=== PATIENT | female | born 2000 | race Caucasian/White ===

== ENCOUNTER 2024-10-23 13:37 | Emergency (ER) | payer SELFPAY ==
--- NOTE | ~2024-10-23 | XR_ITS ---
EXAM/PROCEDURE: XR chest 1V portable - 10/23/2024 14:40 CDT HISTORY: 24 years old Female with cough TECHNIQUE: Two view(s) of the chest. COMPARISON: None available. FINDINGS: LUNGS/ PLEURA: No focal consolidation. Mild perihilar bronchial wall thickening. HEART/ MEDIASTINUM: Heart appears normal in size. BONES: No acute osseous abnormality. OTHER: Visualized upper abdomen is unremarkable. IMPRESSION: No focal consolidation. Mild perihilar bronchial wall thickening, findings suggestive of respiratory bronchiolitis. Reviewed, dictated and finalized at location A. IMPRESSION: No focal consolidation. Mild perihilar bronchial wall thickening, findings sugg estive of respiratory bronchiolitis.
[2024-10-23 13:38] VITALS: BP 127/69; PULSE 126; RESP 16; TEMP 37.7; O2SAT 100
--- NOTE | 2024-10-23 13:46 | ED_ITS ---
HPI - URI/Sore Throat General Chief Complaint: Upper Respiratory Infection Stated Complaint: chills, malaise, sore throat Time Seen by Provider: 10/23/24 15:58 Focused HPI: 24-year-old female presents emergency department for 1 day of sore throat, body aches, productive cough, congestion. Patient denies nausea, vomiting or diarrhea. She is also reporting some discomfort with urination. Denies vaginal discharge or concern for STDs. States her right ear has been bothering her for the past couple weeks but it is now getting better. GENERAL: Well-appearing, well-nourished, and in no acute distress. HEAD: Normocephalic, atraumatic. ENT: Mild injection to the right TM with no bulging, normal canal, no mastoid tenderness. Left TM is wells nonbulging with normal canals. Posterior pharynx with erythema and bilateral tonsillar exudates. No unilateral tonsillar hypertrophy or uvular deviation. No trismus. CHEST: Clear to auscultation. ?No respiratory distress. HEART: Regular rate and rhythm.? NEURO: ?Alert and oriented x3. Patient screened in triage and initial orders placed.? ?Additional care and disposition to be based upon?diagnostic testing and treatment. Related Data Allergies Allergy/AdvReac Type Severity Reaction Status Date / Time No Known Allergies Allergy Verified 10/23/24 13:39 Course Vital Signs Vital signs: Vital Signs Temperature 100 F H 10/23/24 13:38 Pulse Rate 126 H 10/23/24 13:38 Respiratory Rate 16 10/23/24 13:38 Blood Pressure 127/69 10/23/24 13:38 Pulse Oximetry 100 10/23/24 13:38 Temperature 98.7 F 10/23/24 17:45 Pulse Rate 92 10/23/24 17:45 Respiratory Rate 16 10/23/24 17:45 Blood Pressure 119/70 10/23/24 17:45 Pulse Oximetry 100 10/23/24 17:45 Oxygen Delivery Room Air 10/23/24 16:00 MDM - URI/Sore Throat Lab Data Labs: Lab Results 10/23/24 10/23/24 Range/Units 16:02 16:06 Urine Color Yellow (Yellow) Urine Appearance Clear (Clear) Urine pH 5.5 (5.0-9.0) Ur Specific [place] 1.006 (1.001-1.035) Urine Protein Negative (Negative) mg/dL Urine Glucose (UA) Negative (Negative) mg/dL Urine Ketones Negative (Negative) mg/dL Ur Blood (Man) Negative (Negative) Urine Nitrate Negative (Negative) Urine Bilirubin Negative (Negative) Urine Urobilinogen 0.2 (<2.0) mg/dL Leukocyte Esterase Rfl Negative (Negative) SAMMY/UL POC Urine HCG, Qual Negative (Negative) Influenza A (RT-PCR) Negative (Negative) Influenza B (RT-PCR) Negative (Negative) RSV (RT-PCR) Negative (Negative) SARS-CoV-2 RNA (RT-PCR) Negative (Negative) Group A Strep (PCR) Detected A (Negative) Discharge Plan Discharge Clinical Impression: Strep pharyngitis Patient Disposition: Home Condition: Stable Instructions: Antibiotic Form, Strep Throat (DC) Patient Language: Sinhala Prescriptions: New amoxicillin-pot clavulanate 875-125 mg tablet 1 tablet PO Q12H Qty: 20 0RF Follow-up/Referrals: PHYSICIAN,TELEVISION ANCHOR [Primary Care Provider] -
[2024-10-23 16:08] LABS: BEDSIDEPREGUCG Negative (Negative)
[2024-10-23 16:16] LABS: Add Urine Microscopic? NO; Appearance Urine Clear (Clear); Glucose Urine UA Negative (Negative); Leukocyte Esterase Ur Negative LEU/UL (Negative); Nitrate Urine Negative (Negative); Specific Grav Ur 1.006 (1.001-1.035)
--- OUTSIDE RECORDS SUMMARY | 2024-10-23 16:27 | XMS_ITS ---
Author Organization Unknown Address [address] [place], [place] [phone] Phone Care Team Providers Care Air Pollution Compliance Inspector Name Role Phone KEARA MAGAÑA [facility] SYBIL Rhodes Primary Unavailable Social History Type Status Start Date End Date Code Code Syst em Sex Female Vital Signs Vital Sign Value Unit Smith Value Smith Unit Date/Time Recent/Initial? Code Code System Body Mass Index 27.07 kg/m2 07/04/2023 22:30 Initial 61292 -5 LOINC Systolic Blood Pressure 127 mm[Hg] 07/04/2023 23:07 Most Recent 8480- 6 LOINC Diastolic Blood Pressure 65 mm[Hg] 07/04/2023 23:07 Most Recent 8462- 4 LOINC Systolic Blood Pressure 149 mm[Hg] 07/04/2023 22:30 Initial 8480- 6 LOINC Diastolic Blood Pressure 88 mm[Hg] 07/04/2023 22:30 Initial 8462- 4 LOINC Body Surface Area 1.71 m2 07/04/2023 22:30 Initial 3140- 1 LOINC Height 157.480 0 cm 62.00 in 07/04/2023 22:30 Initial 8302- 2 LOINC O2 Saturation 98 % 2023 23:07 Most Recent 35628 -5 LOINC O2 Saturation 98 % 2023 22:30 Initial 81828 -5 LOINC Pulse 74.0 /min 07/04/2023 23:07 Most Recent 8867- 4 LOINC Pulse 91.0 /min 07/04/2023 22:30 Initial 8867- 4 LOINC Respiration 20 /min 07/04/19 23:07 Most Recent 9279- 1 LOINC Respiration 18 /min 07/04/19 22:30 Initial 9279- 1 LOINC Temperature 36.9 Jolynn 98.4 F 07/04/19 24 22:30 Initial 8310- 5 LOINC Weight 67.13 kg 148.00 lbs 07/04/2023 22:30 Initial 05408 -7 LOINC Assessment You had the following problems:FEVERPHARYNGITIS Hospital Discharge Instructions Should you have any questions prior to discharge, please contact a member of your healthcare team. If you have left the hospital and have any questions, please contact your primary care physician. Reason For Referral No Data Found Problems Problem Start Date Resolved Date Status Code Code System FEVER active 625188410 SNOMED-CT PHARYNGITIS active 480985760 SNOMED-C T Allergies and Adverse Reactions Allergy Substance Reaction Severity Start Date Concern Status Co de Code System No Known Drug Allergies Active 288488123 SNOMED-CT Plan of Treatment No Data Found Encounters Encounter Diagnosis Start Date Code Code Sys tem Rash and other nonspecific skin eruption 07/04/2023 SNOMED-CT Personal Care Team Section Performer Name Performer Role Active Date Inactive Da te ANNIA Rhodes PCP - Primary care physician 2022-01-12 2023-12-10 ANNIA Rhodes PCP - Primary care physician 2023-12-10 2023-12-10
--- OUTSIDE RECORDS SUMMARY | 2024-10-23 16:27 | XMS_ITS ---
Author Organization Unknown Address [address] [phone] Phone Care Team Providers Care Hydrostatic Tubing Tester Name Role Phone GODWIN BROWN Attending Unavailable ANNIA Rhodes Primary Unavailable Results STREP SCREEN - Collect Date/ Time: 08/18/2022 15:49 [facility] ID: [id number] [address], [place], [phone] LOINC: Test Value Unit Reference Range Code Code System Flag STREP GRP A NEGATIVE NORMAL: NEGATIVE COVID RAPID ANTIGEN - Collec t Date/Time: 08/18/2022 15:49 [facility] ID: [id number] [address], [place], [phone] LOINC: 67727-0 Test Value Unit Reference Range Code Code System Flag COVID AG NEGATIVE NORMAL: NEGATIVE 20769-9 LOINC LIPASE - Collect Date/Time: 08/18/2022 15:48 [facility] ID: [id number] [address], [place], [phone] LOINC: 3040-3 Test Value Unit Reference Range Code Code System Flag LIPASE 111 U/L L=114 H=286 L CBC W/DIFF - Collect Date/Ti me: 08/18/2022 15:48 [facility] ID: [id number] [address], [place], [phone] LOINC: 52176-2 Test Value Unit Reference Range Code Code System Flag WBC 4.6 X10^3 L=4.8 H=10.8 L RBC 4.7 X10^6 L=4.2 H=5.4 HEMOGLOBIN 12.7 g/dL L=12.0 H=16.0 HEMATOCRIT 38 % L=36 H=51 MCV 81 fL L=82 H=95 L MCH 27 pg L=27 H=31 MCHC 33 g/dL L=32 H=36 RDW 16 % L=11 H=15 H PLATELETS 225 X10^3 L=130 H=400 MPV 8.2 fL %NEUT 72 % L=42 H=75 %LYMPH 17.4 % L=20.5 H=51.1 L %MONO 9.2 % L=1.7 H=9.3 %EOS 1.5 % L=0.0 H=7.0 %BASO 0.2 % L=0.0 H=1.5 #NEUT 3.3 X10^3 L=1.5 H=8.0 #LYMPH 0.8 X10^3 L=1.2 H=3.4 L #MONO 0.4 X10^3 L=0.1 H=0.6 #EOS 0.1 X10^3 L=0.0 H=0.8 #BASO 0.0 X10^3 L=0.0 H=0.2 MANUAL DIFF RBC MORPH URINALYSIS - Collect Date/Ti me: 08/18/2022 15:48 [facility] ID: [id number] [address], [place], [phone] LOINC: 58426-4 Test Value Unit Reference Range Code Code System Flag SPEC SOURCE: COLOR Yellow NORMAL: Straw CLARITY Clear NORMAL: Clear SPEC GRAVITY 1.020 1.005 - 1.020 pH 5.5 5.5 - 7.5 GLUCOSE Negative NORMAL: Negative BILIRUBIN Negative NORMAL: Negative KETONE Negative NORMAL: Negative PROTEIN Negative NORMAL: Negative NITRITE Negative NORMAL: Negative BLOOD Negative NORMAL: Negative LEUK EST Negative NORMAL: Negative UROBILINOGEN 0.2 0.2 - 1.0 mg/dL MICROSCOPIC See Below WBC None Seen NORMAL: None Seen RBC None Seen NORMAL: None Seen EPITHELIAL 0-2/HPF NORMAL: None Seen BACTERIA Trace NORMAL: None Seen MUCOUS NORMAL: None Seen CASTS CRYSTALS URINE HCG - Collect Date/Kt e: 08/18/2022 15:48 [facility] ID: [id number] [address], [place], [phone] LOINC: 2-1 Test Value Unit Reference Range Code Code System Flag PREG URINE NEGATIVE CMP - Collect Date/Time: 08/2022 15:48 [facility] ID: [id number] [address], [place], [phone] LOINC: 21806-9 Test Value Unit Reference Range Code Code System Flag SODIUM 140 mmol/L L=133 H=142 POTASSIUM 4.0 mmol/L L=3.6 H=5.2 CHLORIDE 103 mmol/L L=100 H=108 CO2 30 mmol/L L=21 H=32 ANION GAP 11 GLUCOSE 84 mg/dL L=70 H=110 BUN 9 mg/dL L=7 H=18 CREATININE 0.8 mg/dL L=0.6 H=1.3 BUN/CREAT 11 AGE 22 yrs NON-AA GFR 95 mL/min AFR AMER GFR 115 mL/min TOTAL PROTEIN 7.4 g/dL L=6.4 H=8.2 ALBUMIN 4.0 g/dL L=2.9 H=4.7 GLOBULIN 3 g/dL A/G RATIO 1.3 CALCIUM 9.1 mg/dL L=8.7 H=10.2 TOTAL BILI 0.6 mg/dL L=0.2 H=1.0 ALKALINE PHOS 140 U/L L=42 H=98 H SGOT/AST 18 U/L L=5 H=30 SGPT/ALT 37 U/L L=5 H=35 H Social History Type Status Start Date End Date Code Code Syst em Sex Female Vital Signs Vital Sign Value Unit Major Value Major Unit Date/Time Recent/Initial? Code Code System Body Mass Index 32.92 kg/m2 08/18/2022 13:35 Initial 63328 -5 LOINC Systolic Blood Pressure 120 mm[Hg] 08/18/2022 15:35 Most Recent 8480- 6 LOINC Diastolic Blood Pressure 67 mm[Hg] 08/18/2022 15:35 Most Recent 8462- 4 LOINC Systolic Blood Pressure 128 mm[Hg] 08/18/2022 13:35 Initial 8480- 6 LOINC Diastolic Blood Pressure 79 mm[Hg] 08/18/2022 13:35 Initial 8462- 4 LOINC Body Surface Area 1.89 m2 08/18/2022 13:35 Initial 3140- 1 LOINC Height 157.480 0 cm 62.00 in 08/18/2022 13:35 Initial 8302- 2 LOINC O2 Saturation 96 % 2022 15:35 Most Recent 89456 -5 LOINC O2 Saturation 96 % 2022 13:35 Initial 19933 -5 LOINC Pulse 84.0 /min 08/18/2022 15:35 Most Recent 8867- 4 LOINC Pulse 105.0 /min 08/18/2022 13:35 Initial 8867- 4 LOINC Respiration 20 /min 08/19/19 15:35 Most Recent 9279- 1 LOINC Respiration 20 /min 08/19/19 13:35 Initial 9279- 1 LOINC Temperature 37.6 Jolynn 99.7 F 08/19/19 13:35 Initial 8310- 5 LOINC Weight 81.65 kg 180.00 lbs 08/18/2022 13:35 Initial 24225 -7 LOINC Assessment You had the following problems:FEVERPHARYNGITIS Hospital Discharge Instructions Should you have any questions prior to discharge, please contact a member of your healthcare team. If you have left the hospital and have any questions, please contact your primary care physician. Reason For Referral No Data Found Problems Problem Start Date Resolved Date Status Code Code System FEVER active 220498795 SNOMED-CT PHARYNGITIS active 293011795 SNOMED-C T Allergies and Adverse Reactions Allergy Substance Reaction Severity Start Date Concern Status Co de Code System No Known Drug Allergies Active 928362886 SNOMED-CT Plan of Treatment No Data Found Encounters Encounter Diagnosis Start Date Code Code Sys tem Nausea with vomiting, unspecified 08/18/2022 SNOMED-CT Personal Care Team Section Performer Name Performer Role Active Date Inactive Arcadio Ramsay PCP - Primary care physician 2022-01-12 2023-12-10 ANNIA Rhodes PCP - Primary care physician 2023-12-10 2023-12-10
--- OUTSIDE RECORDS SUMMARY | 2024-10-23 16:27 | XMS_ITS ---
Author Organization Unknown Address [address] [place], [place] [phone] Phone Care Team Providers Care Community Facilitator Name Role Phone CAROL CALDERA Attending Unavailable ANNIA Rhodes Primary Unavailable Social History Type Status Start Date End Date Code Code Syst em Sex Female Vital Signs Vital Sign Value Unit Stevens Value Stevens Unit Date/Time Recent/Initial? Code Code System Body Mass Index 25.61 kg/m2 09/07/2023 14:04 Initial 54287 -5 LOINC Systolic Blood Pressure 149 mm[Hg] 09/07/2023 14:04 Initial 8480- 6 LOINC Diastolic Blood Pressure 83 mm[Hg] 09/07/2023 14:04 Initial 8462- 4 LOINC Body Surface Area 1.67 m2 09/07/2023 14:04 Initial 3140- 1 LOINC Height 157.480 0 cm 62.00 in 09/07/2023 14:04 Initial 8302- 2 LOINC O2 Saturation 98 % 2023 14:04 Initial 94782 -5 LOINC Pulse 92.0 /min 09/07/2023 14:04 Initial 8867- 4 LOINC Respiration 18 /min 09/07/19 14:04 Initial 9279- 1 LOINC Temperature 36.8 Jolynn 98.2 F 09/07/19 14:04 Initial 8310- 5 LOINC Weight 63.50 kg 140.00 lbs 09/07/2023 14:04 Initial 89047 -7 LOINC Assessment You had the following problems:FEVERPHARYNGITIS Hospital Discharge Instructions Should you have any questions prior to discharge, please contact a member of your healthcare team. If you have left the hospital and have any questions, please contact your primary care physician. Reason For Referral No Data Found Problems Problem Start Date Resolved Date Status Code Code System FEVER active 773878183 SNOMED-CT PHARYNGITIS active 742178108 SNOMED-C T Allergies and Adverse Reactions Allergy Substance Reaction Severity Start Date Concern Status Co de Code System No Known Drug Allergies Active 849349816 SNOMED-CT Plan of Treatment No Data Found Encounters Encounter Diagnosis Start Date Code Code Sys tem Mastodynia 09/07/2023 SNOMED-CT Personal Care Team Section Performer Name Performer Role Active Date Inactive Da te ANNIA Rhodes PCP - Primary care physician 2022-01-12 2023-12-10 ANNIA Rhodes PCP - Primary care physician 2023-12-10 2023-12-10
--- OUTSIDE RECORDS SUMMARY | 2024-10-23 16:27 | XMS_ITS ---
Author Organization Unknown Address [address] [phone] Phone Care Team Providers Care Removable Prosthodontist Name Role Phone CAROL CALDEAR Attending Unavailable NO PCP Primary Unavailable Results URINE HCG - Collect Date/Kt e: 03/07/2024 23:16 [facility] ID: [id number] [address], [place], [phone] LOINC: 2112-1 Test Value Unit Reference Range Code Code System Flag PREG URINE NEGATIVE URINALYSIS - Collect Date/Ti me: 03/07/2024 22:33 [facility] ID: [id number] [address], [place], [phone] LOINC: 65999-8 Test Value Unit Reference Range Code Code System Flag SPEC SOURCE: COLOR Yellow NORMAL: Straw CLARITY Clear NORMAL: Clear SPEC GRAVITY 1.020 1.005 - 1.020 pH 7.0 5.5 - 7.5 GLUCOSE Negative NORMAL: Negative BILIRUBIN Negative NORMAL: Negative KETONE Negative NORMAL: Negative PROTEIN Negative NORMAL: Negative NITRITE Negative NORMAL: Negative BLOOD Small NORMAL: Negative LEUK EST Negative NORMAL: Negative UROBILINOGEN 0.2 0.2 - 1.0 mg/dL MICROSCOPIC See Below WBC None Seen NORMAL: None Seen RBC 1 - 4/HPF NORMAL: None Seen A EPITHELIAL 0-2/HPF NORMAL: None Seen BACTERIA Trace NORMAL: None Seen MUCOUS NORMAL: None Seen CASTS CRYSTALS CBC W/DIFF - Collect Date/Ti me: 03/07/2024 22:33 [facility] ID: [id number] [address], [place], [id number] LOINC: 55846-3 Test Value Unit Reference Range Code Code System Flag WBC 6.4 X10^3 L=4.8 H=10.8 RBC 4.5 X10^6 L=4.2 H=5.4 HEMOGLOBIN 12.9 g/dL L=12.0 H=16.0 HEMATOCRIT 39 % L=36 H=51 MCV 87 fL L=82 H=95 MCH 28 pg L=27 H=31 MCHC 33 g/dL L=32 H=36 RDW 14 % L=11 H=15 PLATELETS 244 X10^3 L=130 H=400 MPV 8.4 fL %NEUT 59 % L=42 H=75 %LYMPH 28.5 % L=20.5 H=51.1 %MONO 8.8 % L=1.7 H=9.3 %EOS 3.1 % L=0.0 H=7.0 %BASO 0.3 % L=0.0 H=1.5 #NEUT 3.8 X10^3 L=1.5 H=8.0 #LYMPH 1.8 X10^3 L=1.2 H=3.4 #MONO 0.6 X10^3 L=0.1 H=0.6 #EOS 0.2 X10^3 L=0.0 H=0.8 #BASO 0.0 X10^3 L=0.0 H=0.2 MANUAL DIFF RBC MORPH CMP - Collect Date/Time: 22:33 [facility] ID: [id number] [address], [place], [phone] LOINC: 97661-4 Test Value Unit Reference Range Code Code System Flag SODIUM 139 mmol/L L=133 H=142 POTASSIUM 4.3 mmol/L L=3.6 H=5.2 CHLORIDE 103 mmol/L L=100 H=108 CO2 29 mmol/L L=21 H=32 ANION GAP 11 GLUCOSE 91 mg/dL L=70 H=110 BUN 9 mg/dL L=7 H=18 CREATININE 0.9 mg/dL L=0.6 H=1.3 BUN/CREAT 10 AGE 23 yrs NON-AA GFR 82 mL/min AFR AMER GFR 100 mL/min TOTAL PROTEIN 7.2 g/dL L=6.4 H=8.2 ALBUMIN 4.0 g/dL L=3.4 H=5.0 GLOBULIN 3 g/dL A/G RATIO 1.3 CALCIUM 8.5 mg/dL L=8.7 H=10.2 L TOTAL BILI 0.4 mg/dL L=0.2 H=1.0 ALKALINE PHOS 100 U/L L=42 H=98 H SGOT/AST 16 U/L L=5 H=30 SGPT/ALT 15 U/L L=5 H=35 AMYLASE - Collect Date/Time: 03/07/2024 22:33 [facility] ID: [id number] [address], [place], [phone] LOINC: 1798-8 Test Value Unit Reference Range Code Code System Flag AMYLASE 73 U/L L=25 H=115 LIPASE - Collect Date/Time: 03/07/2024 22:33 [facility] ID: [id number] [address], [place], [phone] LOINC: 3040-3 Test Value Unit Reference Range Code Code System Flag LIPASE 51 U/L L=16 H=77 CT ABD PEL W - Completed: 23:37 LOINC: \TM00\\12PI\\DRAo\\BM09\\PGN o\\MRB2\ \MRLo\ [facility] [address] [address] ---------NAME--------- NUMBER SEX AGE ADMIT DISC. XRAY# F/C TYPE MOR CASTRO HARRIS [id number] F 23 03/07/24 17269 P E/R DATE OF : 2000 M/R# [id number] PH#: [phone] ED5 \MRHx\ LOCATION: TRANSCRIBED: 03/07/24 23:[address] ABD PEL W 22498 COMPLETED:03/07/24 23:37 [place] [address] {REASON FOR ABDOMEN: ABDOMINAL PAIN PHYSICIAN: CAROL GuzmanT R A D I [place] [address] Patient Name: RICK JUARES [facility] Rec # [id number] [facility] Radiology Report STATUS: Signed [id number] OCT/CT Abdomen Pelvis W Con EXAMINATION: CT Abdomen Pelvis W Con DEMOGRAPHICS: Female patient who is 23 years old. HISTORY: ABDOMINAL PAIN COMPARISON: 02/16/2022 Technique: Axial images were obtained from the lung bases through the symphysis pubis following the administration of intravenous contrast. Coronal and sagittal reformatted images are also provided. Automated exposure control was utilized. CONTRAST: Intravenous injection of contrast was performed. Enteric contrast was not FINDINGS: CT ABDOMEN: Lung bases: The visualized lung bases are clear. The heart is normal in size. No pericardial or pleural effusions. Retroperitoneum: No evidence of pneumoperitoneum. The aorta is normal in course and caliber without aneurysmal dilatation. No retroperitoneal lymphadenopathy. No significant aortic calcified atherosclerotic vascular disease. Abdominal organs: The gallbladder is normal. The liver, spleen, pancreas, and bilateral adrenal glands are normal in CT appearance. Kidneys: There is symmetric enhancement of the kidneys. No hydronephrosis. No focal renal lesion. Bowel/colon: The small bowel is normal in course and caliber. No evidence of small bowel obstruction. The colon is normal in course and caliber. The appendix is normal in appearance without periappendiceal fat stranding or fluid collection. CT PELVIS: The nonenhanced bladder is normal in appearance. No inguinal hernia. No pelvic lymphadenopathy. Ischiorectal fossa are clear. Trace free pelvic fluid. The uterus and adnexa are normal in appearance. Osseous/soft tissues: The osseous and soft tissues are normal in appearance. IMPRESSION: 1. Negative for acute process. 2. Trace free pelvic fluid, likely physiologic in a young female patient. Signature: LEANN ACEVES DO <Electronically signed by LEANN ACEVES DO in OV> 03/07/242345 CCRYEN/CCR DD/ 41 TD/TT: 03/07/242341 Hospital Service: OVM: [id number] OVA: [id number] OVO: [phone] RESEND: cc: Thomas MEDINA JR DO \ITLo\ \UNDo\ \UNDx\ \ITLx\ Reviewed and Electronically Signed by: VIGNESH ACEVES DO RADIOLOGIST Signed Date: 03/07/24 23:42 Social History Type Status Start Date End Date Code Code Syst em Sex Female Vital Signs Vital Sign Value Unit Fergus Value Fergus Unit Date/Time Recent/Initial? Code Code System Body Mass Index 25.61 kg/m2 03/07/2024 22:02 Initial 97066 -5 LOINC Systolic Blood Pressure 101 mm[Hg] 03/08/2024 00:11 Most Recent 8480- 6 LOINC Diastolic Blood Pressure 58 mm[Hg] 03/08/2024 00:11 Most Recent 8462- 4 LOINC Systolic Blood Pressure 116 mm[Hg] 03/07/2024 22:02 Initial 8480- 6 LOINC Diastolic Blood Pressure 79 mm[Hg] 03/07/2024 22:02 Initial 8462- 4 LOINC Body Surface Area 1.67 m2 03/07/2024 22:02 Initial 3140- 1 LOINC Height 157.480 0 cm 62.00 in 03/07/2024 22:02 Initial 8302- 2 LOINC O2 Saturation 95 % 2023 00:11 Most Recent 93907 -5 LOINC O2 Saturation 98 % 2023 22:02 Initial 44246 -5 LOINC Pulse 75.0 /min 03/08/2024 00:11 Most Recent 8867- 4 LOINC Pulse 89.0 /min 03/07/2024 22:02 Initial 8867- 4 LOINC Respiration 18 /min 03/08/20 00:11 Most Recent 9279- 1 LOINC Respiration 18 /min 03/07/20 22:02 Initial 9279- 1 LOINC Temperature 36.7 Jolynn 98.1 F 03/08/20 00:11 Most Recent 8310- 5 LOINC Temperature 36.8 Jolynn 98.3 F 03/07/20 22:02 Initial 8310- 5 LOINC Weight 63.50 kg 140.00 lbs 03/07/2024 22:02 Initial 65056 -7 LOINC Assessment You had the following problems:FEVERPHARYNGITIS Hospital Discharge Instructions Should you have any questions prior to discharge, please contact a member of your healthcare team. If you have left the hospital and have any questions, please contact your primary care physician. Reason For Referral No Data Found Problems Problem Start Date Resolved Date Status Code Code System FEVER active 522871829 SNOMED-CT PHARYNGITIS active 694150949 SNOMED-C T Allergies and Adverse Reactions Allergy Substance Reaction Severity Start Date Concern Status Co de Code System No Known Drug Allergies Active 993979433 SNOMED-CT Plan of Treatment No Data Found Encounters Encounter Diagnosis Start Date Code Code Sys tem Unspecified abdominal pain 03/07/2024 S NOMED-CT Personal Care Team Section Performer Name Performer Role Active Date Inactive Da te ANNIA Rhodes PCP - Primary care physician 2022-01-12 2023-12-10 ANNIA Rhodes PCP - Primary care physician 2023-12-10 2023-12-10 Imaging Narrative Notes [facility] \TM00\\12PI\\DRAo\\BM09\\PGNo\\MRB2\ \MRLo\ [facility] [address] [place] [address] ---------NAME--------- NUMBER SEX AGE ADMIT DISC. XRAY# F/C TYPE MOR HARRIS [id number] F 23 03/07/24 00776 P E/R DATE OF : 2000 M/R# [id number] #: [id number] ED5 \MRHx\ LOCATION: TRANSCRIBED: 03/07/24 23:[address] ABD PEL W 82079 COMPLETED:03/07/24 23:37 [place] [address] {REASON FOR ABDOMEN: ABDOMINAL PAIN PHYSICIAN: CAROL GuzmanT R A D I O L O G Y R E P O R T [address] [place] [address] Patient Name: RICK JUARES [facility] Rec # [id number] [facility] Radiology Report STATUS: Signed [id number] OCT/CT Abdomen Pelvis W Con EXAMINATION: CT Abdomen Pelvis W Con DEMOGRAPHICS: Female patient who is 23 years old. HISTORY: ABDOMINAL PAIN COMPARISON: 02/16/2022 Technique: Axial images were obtained from the lung bases through the symphysis pubis following the administration of intravenous contrast. Coronal and sagittal reformatted images are also provided. Automated exposure control was utilized. CONTRAST: Intravenous injection of contrast was performed. Enteric contrast was not FINDINGS: CT ABDOMEN: Lung bases: The visualized lung bases are clear. The heart is normal in size. No pericardial or pleural effusions. Retroperitoneum: No evidence of pneumoperitoneum. The aorta is normal in course and caliber without aneurysmal dilatation. No retroperitoneal lymphadenopathy. No significant aortic calcified atherosclerotic vascular disease. Abdominal organs: The gallbladder is normal. The liver, spleen, pancreas, and bilateral adrenal glands are normal in CT appearance. Kidneys: There is symmetric enhancement of the kidneys. No hydronephrosis. No focal renal lesion. Bowel/colon: The small bowel is normal in course and caliber. No evidence of small bowel obstruction. The colon is normal in course and caliber. The appendix is normal in appearance without periappendiceal fat stranding or fluid collection. CT PELVIS: The nonenhanced bladder is normal in appearance. No inguinal hernia. No pelvic lymphadenopathy. Ischiorectal fossa are clear. Trace free pelvic fluid. The uterus and adnexa are normal in appearance. Osseous/soft tissues: The osseous and soft tissues are normal in appearance. IMPRESSION: 1. Negative for acute process. 2. Trace free pelvic fluid, likely physiologic in a young female patient. Signature: LEANN ACEVES DO <Electronically signed by LEANN ACEVES DO in OV> 03/07/242345 CCRYEN/CCR DD/ 41 TD/TT: 03/07/242341 Hospital Service: OVM: [id number] OVA: [id number] OVO: [phone] RESEND: cc: Thomas MEDINA JR, DO \ITLo\ \UNDo\ \UNDx\ \ITLx\ Reviewed and Electronically Signed by: VIGNESH ACEVES DO RADIOLOGIST Signed Date: 03/07/24 23:42
--- OUTSIDE RECORDS SUMMARY | 2024-10-23 16:27 | XMS_ITS ---
Author Organization Unknown Address [address] [phone] Phone Care Team Providers Care Chip Tuner Name Role Phone FACUNDO Horne Attending Unavailable NO PCP Primary Unavailable Results COVID RAPID ANTIGEN - Collec t Date/Time: 12/10/2023 20:37 [facility] ID: [id number] [address], [place], [phone] LOINC: 89453-5 Test Value Unit Reference Range Code Code System Flag COVID AG NEGATIVE NORMAL: NEGATIVE 79093-5 LOINC FLU A/B - Collect Date/Time: 12/10/2023 20:37 [facility] ID: [id number] [address], [place], [id number] LOINC: Test Value Unit Reference Range Code Code System Flag INFLUENZA A NEGATIVE NORMAL: NEGATIVE INFLUENZA B NEGATIVE NORMAL: NEGATIVE STREP SCREEN - Collect Date/ Time: 12/10/2023 20:36 [facility] ID: [id number] [address], [place], [id number] LOINC: Test Value Unit Reference Range Code Code System Flag STREP GRP A NEGATIVE NORMAL: NEGATIVE Social History Type Status Start Date End Date Code Code Syst em Sex Female Vital Signs Vital Sign Value Unit Gregg Value Gregg Unit Date/Time Recent/Initial? Code Code System Body Mass Index 24.69 kg/m2 12/10/2023 14:47 Initial 48952 -5 LOINC Systolic Blood Pressure 125 mm[Hg] 12/10/2023 14:47 Initial 8480- 6 LOINC Diastolic Blood Pressure 77 mm[Hg] 12/10/2023 14:47 Initial 8462- 4 LOINC Body Surface Area 1.64 m2 12/10/2023 14:47 Initial 3140- 1 LOINC Height 157.480 0 cm 62.00 in 12/10/2023 14:47 Initial 8302- 2 LOINC O2 Saturation 98 % 2023 14:47 Initial 48795 -5 LOINC Pulse 114.0 /min 12/10/2023 14:47 Initial 8867- 4 LOINC Respiration 18 /min 12/10/19 14:47 Initial 9279- 1 LOINC Temperature 37.9 Jolynn 100.2 F 12/10/19 14:47 Initial 8310- 5 LOINC Weight 61.23 kg 135.00 lbs 12/10/2023 14:47 Initial 50611 -7 LOINC Assessment You had the following problems:FEVERPHARYNGITIS Hospital Discharge Instructions Should you have any questions prior to discharge, please contact a member of your healthcare team. If you have left the hospital and have any questions, please contact your primary care physician. Reason For Referral No Data Found Problems Problem Start Date Resolved Date Status Code Code System FEVER active 940856153 SNOMED-CT PHARYNGITIS active 687248655 SNOMED-C T Allergies and Adverse Reactions Allergy Substance Reaction Severity Start Date Concern Status Co de Code System No Known Drug Allergies Active 343402203 SNOMED-CT Plan of Treatment No Data Found Encounters Encounter Diagnosis Start Date Code Code Sys tem Fever, unspecified 12/10/2023 SNOMED-CT Personal Care Team Section Performer Name Performer Role Active Date Inactive Da te ANNIA Rhodes PCP - Primary care physician 2022-01-12 2023-12-10 ANNIA Rhodes PCP - Primary care physician 2023-12-10 2023-12-10
--- OUTSIDE RECORDS SUMMARY | 2024-10-23 16:28 | XMS_ITS ---
Author Organization Unknown Address [facility] [place], [place] [phone] Phone Care Team Providers Care Cyber Forensic Specialist Name Role Phone CHIARA KAUFMAN Attending Unavailable NO PCP Primary Unavailable Social History Type Status Start Date End Date Code Code Syst em Sex Female Vital Signs Vital Sign Value Unit [place] Value [place] Unit Date/Time Recent/Initial? Code Code System Body Mass Index 34.37 kg/m2 01/12/2022 17:34 Initial 63537 -5 LOINC Systolic Blood Pressure 137 mm[Hg] 01/12/2022 17:34 Initial 8480- 6 LOINC Diastolic Blood Pressure 84 mm[Hg] 01/12/2022 17:34 Initial 8462- 4 LOINC Body Surface Area 1.98 m2 01/12/2022 17:34 Initial 3140- 1 LOINC Height 160.020 0 cm 63.00 in 01/12/2022 17:34 Initial 8302- 2 LOINC O2 Saturation 100 % 2021 17:34 Initial 24771 -5 LOINC Pulse 94.0 /min 01/12/2022 17:34 Initial 8867- 4 LOINC Respiration 17 /min 01/13/20 22 17:34 Initial 9279- 1 LOINC Temperature 36.8 Jolynn 98.2 F 01/13/20 17:34 Initial 8310- 5 LOINC Weight 88.00 kg 194.00 lbs 01/12/2022 17:34 Initial 30669 -7 LOINC Assessment You had the following problems:FEVERPHARYNGITIS Hospital Discharge Instructions Should you have any questions prior to discharge, please contact a member of your healthcare team. If you have left the hospital and have any questions, please contact your primary care physician. Reason For Referral No Data Found Problems Problem Start Date Resolved Date Status Code Code System FEVER active 304644658 SNOMED-CT PHARYNGITIS active 944268291 SNOMED-C T Allergies and Adverse Reactions Allergy Substance Reaction Severity Start Date Concern Status Co de Code System No Known Drug Allergies Active 074100744 SNOMED-CT Plan of Treatment No Data Found Encounters Encounter Diagnosis Start Date Code Code Sys tem Unspecified injury of left ankle, initial encounter SNOMED-CT Personal Care Team Section Performer Name Performer Role Active Date Inactive Da nimco Rhodes PCP - Primary care physician 2022-01-12 2023-12-10 ANNIA Rhodes PCP - Primary care physician 2023-12-10 2023-12-10
--- OUTSIDE RECORDS SUMMARY | 2024-10-23 16:28 | XMS_ITS ---
Author Organization Unknown Address [address] [phone] Phone Care Team Providers Care Post Doc Fellowship Name Role Phone JOSELITO RODRIGUEZ Registered Nurse Unavailable JEY MANSFIELD Registered Nurse Unavailable KEARA MAGAÑA Attending Unavail jamaica Rhodes Primary Unavailable Results CULTURE GENITAL - Collect Da te/Time: 02/16/2022 02:00 [facility] ID: [id number] [address], [place], [id number] LOINC: Test Value Unit Reference Range Code Code System Flag GENITAL CULTURE See Note URINALYSIS - Collect Date/Ti me: 02/16/2022 00:33 [facility] ID: [id number] [address], [place], [id number] LOINC: 59711-4 Test Value Unit Reference Range Code Code System Flag SPEC SOURCE: Clean Catch COLOR Yellow NORMAL: Straw CLARITY Clear NORMAL: Clear SPEC GRAVITY 1.025 1.005 - 1.020 pH 6.0 5.5 - 7.5 GLUCOSE Negative NORMAL: Negative BILIRUBIN Negative NORMAL: Negative KETONE Negative NORMAL: Negative PROTEIN Negative NORMAL: Negative NITRITE Negative NORMAL: Negative BLOOD Moderate NORMAL: Negative A LEUK EST Negative NORMAL: Negative UROBILINOGEN 0.2 0.2 - 1.0 mg/dL MICROSCOPIC See Below WBC 0 - 1/HPF NORMAL: None Seen RBC 1 - 4/HPF NORMAL: None Seen A EPITHELIAL 0-2/HPF NORMAL: None Seen BACTERIA None Seen NORMAL: None Seen MUCOUS None Seen NORMAL: None Seen CASTS None Seen CRYSTALS None Seen CMP - Collect Date/Time: 05/2021 23:45 [facility] ID: [id number] [address], [place], [id number] LOINC: 64525-3 Test Value Unit Reference Range Code Code System Flag SODIUM 139 mmol/L L=133 H=142 POTASSIUM 4.0 mmol/L L=3.6 H=5.2 CHLORIDE 105 mmol/L L=100 H=108 CO2 27 mmol/L L=21 H=32 ANION GAP 11 GLUCOSE 97 mg/dL L=70 H=110 BUN 16 mg/dL L=7 H=18 CREATININE 1.0 mg/dL L=0.6 H=1.3 BUN/CREAT 16 AGE 21 yrs NON-AA GFR 74 mL/min AFR AMER GFR 90 mL/min TOTAL PROTEIN 7.3 g/dL L=6.4 H=8.2 ALBUMIN 3.1 g/dL L=2.9 H=4.7 GLOBULIN 4 g/dL A/G RATIO 0.8 CALCIUM 9.1 mg/dL L=8.7 H=10.2 TOTAL BILI 0.4 mg/dL L=0.2 H=1.0 ALKALINE PHOS 192 U/L L=42 H=98 H SGOT/AST 23 U/L L=5 H=30 SGPT/ALT 45 U/L L=5 H=35 H CORRECT CRP - Collect Date/Time: 05/2021 23:45 [facility] ID: [id number] [address], [place], [id number] LOINC: 53621-0 Test Value Unit Reference Range Code Code System Flag CRP 7.2 mg/dL L=0.0 H=0.9 H FLU A/B - Collect Date/Time: 02/15/2022 23:45 [facility] ID: [id number] [address], [place], [id number] LOINC: Test Value Unit Reference Range Code Code System Flag INFLUENZA A NEGATIVE NORMAL: NEGATIVE INFLUENZA B NEGATIVE NORMAL: NEGATIVE COVID RAPID ANTIGEN - Colle t Date/Time: 02/15/2022 23:45 [facility] ID: [id number] [address], [place], [id number] LOINC: 71863-2 Test Value Unit Reference Range Code Code System Flag COVID AG NEGATIVE NORMAL: NEGATIVE 86371-0 LOINC CULTURE BLOOD - Collect Date /Time: 02/15/2022 23:45 [facility] ID: [id number] [address], [place], [id number] LOINC: 600-7 Test Value Unit Reference Range Code Code System Flag BLOOD CULTURE See Note CULTURE BLOOD 2ND SPECIMEN - Collect Date/Time: 02/15/2022 23:45 [facility] ID: [id number] [address], [place], [id number] LOINC: 600-7 Test Value Unit Reference Range Code Code System Flag BLOOD CULTURE 2 See Note CBC W/DIFF - Collect Date/Ti me: 02/15/2022 23:45 [facility] ID: [id number] [address], [place], [id number] LOINC: 84378-7 Test Value Unit Reference Range Code Code System Flag WBC 11.3 X10^3 L=4.8 H=10.8 H RBC 3.4 X10^6 L=4.2 H=5.4 L HEMOGLOBIN 9.9 g/dL L=12.0 H=16.0 L HEMATOCRIT 29 % L=36 H=51 L MCV 86 fL L=82 H=95 MCH 29 pg L=27 H=31 MCHC 34 g/dL L=32 H=36 RDW 15 % L=11 H=15 PLATELETS 311 X10^3 L=130 H=400 MPV 7.3 fL %NEUT 84 % L=42 H=75 H %LYMPH 6.6 % L=20.5 H=51.1 L %MONO 7.7 % L=1.7 H=9.3 %EOS 1.6 % L=0.0 H=7.0 %BASO 0.3 % L=0.0 H=1.5 #NEUT 9.5 X10^3 L=1.5 H=8.0 H #LYMPH 0.8 X10^3 L=1.2 H=3.4 L #MONO 0.9 X10^3 L=0.1 H=0.6 H #EOS 0.2 X10^3 L=0.0 H=0.8 #BASO 0.0 X10^3 L=0.0 H=0.2 MANUAL DIFF RBC MORPH CT ABD PEL W - Completed: 02:22 LOINC: \TM00\\12PI\\DRAo\\BM09\\PGN o\\MRB2\ \MRLo\ [address] [place] [address] ---------NAME--------- NUMBER SEX AGE ADMIT DISC. XRAY# F/C TYPE MOR HARRIS [id number] F 21 02/15/22 02/16/22 [id number] ZBD E/R DATE OF : 2000 M/R# [id number] PH#: [phone] ED4 \MRHx\ LOCATION: TRANSCRIBED: 02/16/22 4:[address] ABD PEL W [id number] COMPLETED:02/16/22 2:22 {REASON FOR ABDOMEN: post- pelvic pain PHYSICIAN: KEARA Mendoza R A D [place] O [place] [address] Patient Name: RICK JUARES [facility] Rec # [id number] [facility] Radiology Report STATUS: Signed [id number] OCT/CT Abdomen Pelvis W Con Procedure: CT Abdomen Pelvis W Con Clinical history: POST PELVIC PAIN Technique: Axial [address] images were obtained of the abdomen and pelvis following the administration of intravenous contrast. Coronal and sagittal reformatted images are also provided. Automated exposure control was utilized. Comparison: 01/01/2020 Findings: There is a calcified granuloma in the left lower lobe. No focal consolidation or effusion. The liver, gallbladder, spleen, pancreas, and adrenal glands are unremarkable. The kidneys are unremarkable. There are mildly prominent small bowel loops in the midabdomen without bowel obstruction. There is no free intraperitoneal air or fluid. The uterus is enlarged with fluid present in the major cavity compatible with the recent state. No free fluid or air identified. The osseous structures are unremarkable. Impression: 1. Enlarged uterus with fluid in the endometrial cavity compatible with recent state. 2. Mildly prominent small bowel loops in the mid abdomen with mild bowel wall thickening could reflect a mild enteritis or underdistention. No bowel obstruction. The preliminary vRad report was reviewed. Signature: DIMAS KNOX MD <Electronically signed by DIMAS KNOX MD in OV> 02/16/22 0431 CMARTIN/PHOEBE DD/ 7 TD/TT: 02/16/22427 Hospital Service: OVM: 45983 OVA: [id number] OVO: [phone] RESEND: cc: JIA SARAH \ITLo\ \UNDo\ \UNDx\ \ITLx\ Reviewed and Electronically Signed by: DIMAS KNOX MD RADIOLOGIST Signed Date: 02/16/22 04:28 XR CHEST PORTABLE 1V - Compl eted: 02/16/2022 00:10 LOINC: \TM00\\12PI\\DRAo\\BM09\\PGN o\\MRB2\ \MRLo\ [address] [place] [address] ---------NAME--------- NUMBER SEX AGE ADMIT DISC. XRAY# F/C TYPE MOR HARRIS [id number] F 21 02/15/22 39390 ZBD E/R DATE OF : 2000 M/R# [id number] PH#: [phone] RM ED4 \MRHx\ LOCATION: TRANSCRIBED: 02/16/22 INT XR CHEST PORTABLE 1V 65382 COMPLETED: {REASON FOR CHEST: FEVER PHYSICIAN: KEARA Mendoza R A D I O L O G Y R E P O R T [address] [address] Patient Name: RICK JUARES [facility] Rec # [id number] [facility] Radiology Report STATUS: Signed [id number] OXR/XR Chest Portable Procedure: XR Chest Portable Clinical History: FEVER Comparison: None Findings: AP portable chest. Magnified cardiac silhouette. No large pulmonary consolidation or pleural effusion. No acute bony findings. Impression: No acute findings. Signature: KEVIN ARELLANO MD <Electronically signed by KEVIN ARELLANO MD in OV> 02/16/22 0000 SLITTLE/KHADRA DD/ 0000 TD/TT: 02/16/22 0000 Hospital Service: OVM: 49689 OVA: [id number] OVO: [phone] RESEND: cc: JIA SARAH \ITLo\ \UNDo\ \UNDx\ \ITLx\ Reviewed and Electronically Signed by: KEVIN ARELLANO MD RADIOLOGIST Signed Date: 02/16/22 00:00 Social History Type Status Start Date End Date Code Code Syst em Sex Female Vital Signs Vital Sign Value Unit [place] Value [place] Unit Date/Time Recent/Initial? Code Code System Body Mass Index 32.65 kg/m2 02/15/2022 23:30 Initial 78563 -5 LOINC Systolic Blood Pressure 119 mm[Hg] 02/16/2022 03:58 Most Recent 8480- 6 LOINC Diastolic Blood Pressure 78 mm[Hg] 02/16/2022 03:58 Most Recent 8462- 4 LOINC Systolic Blood Pressure 134 mm[Hg] 02/15/2022 01:53 Initial 8480- 6 LOINC Diastolic Blood Pressure 80 mm[Hg] 02/15/2022 01:53 Initial 8462- 4 LOINC Body Surface Area 1.88 m2 02/15/2022 23:30 Initial 3140- 1 LOINC Height 157.480 0 cm 62.00 in 02/15/2022 23:30 Initial 8302- 2 LOINC O2 Saturation 98 % 2021 03:58 Most Recent 36512 -5 LOINC O2 Saturation 98 % 2021 01:53 Initial 24846 -5 LOINC Pulse 89.0 /min 02/16/2022 03:58 Most Recent 8867- 4 LOINC Pulse 103.0 /min 02/15/2022 01:53 Initial 8867- 4 LOINC Respiration 20 /min 02/17/20 03:58 Most Recent 9279- 1 LOINC Respiration 20 /min 02/16/20 01:53 Initial 9279- 1 LOINC Temperature 36.7 Jolynn 98.1 F 02/16/20 23:30 Initial 8310- 5 LOINC Weight 80.97 kg 178.50 lbs 02/15/2022 23:30 Initial 78962 -7 LOINC Assessment You had the following problems:FEVERPHARYNGITIS Hospital Discharge Instructions Should you have any questions prior to discharge, please contact a member of your healthcare team. If you have left the hospital and have any questions, please contact your primary care physician. Reason For Referral No Data Found Problems Problem Start Date Resolved Date Status Code Code System FEVER active 713816962 SNOMED-CT PHARYNGITIS active 939190805 SNOMED-C T Allergies and Adverse Reactions Allergy Substance Reaction Severity Start Date Concern Status Co de Code System No Known Drug Allergies Active 460152198 SNOMED-CT Plan of Treatment No Data Found Encounters Encounter Diagnosis Start Date Code Code Sys tem Pelvic and perineal pain 02/15/2022 SNO MED-CT Personal Care Team Section Performer Name Performer Role Active Date Inactive Da te ANNIA Rhodes PCP - Primary care physician 2022-01-12 2023-12-10 ANNIA Rhodes PCP - Primary care physician 2023-12-10 2023-12-10 Imaging Narrative Notes [facility] \TM00\\12PI\\DRAo\\BM09\\PGNo\\MRB2\ \MRLo\ [facility] [address] [place] [place] [address] ---------NAME--------- NUMBER SEX AGE ADMIT DISC. XRAY# F/C TYPE MOR HARRIS [id number] F 21 02/15/22 05657 ZBD E/R DATE OF : 2000 M/R# [id number] PH#: [phone] RM ED4 \MRHx\ LOCATION: TRANSCRIBED: 02/16/22 INT XR CHEST PORTABLE 1V 65267 COMPLETED: {REASON FOR CHEST: FEVER PHYSICIAN: KEARA Mendoza R A D I O L O G Y R E P O R T [place] [address] [address] [address] Patient Name: RICK JUARES [facility] Rec # [id number] [facility] Radiology Report STATUS: Signed [id number] OXR/XR Chest Portable Procedure: XR Chest Portable Clinical History: FEVER Comparison: None Findings: AP portable chest. Magnified cardiac silhouette. No large pulmonary consolidation or pleural effusion. No acute bony findings. Impression: No acute findings. Signature: KEVIN ARELLANO MD <Electronically signed by KEVIN ARELLANO MD in OV> 02/16/22 0000 SLITTLE/KHADAR DD/ 0000 TD/TT: 02/16/22 0000 Hospital Service: OVM: 36086 OVA: [id number] OVO: [phone] RESEND: cc: JIA SARAH \ITLo\ \UNDo\ \UNDx\ \ITLx\ Reviewed and Electronically Signed by: KEVIN ARELLANO MD RADIOLOGIST Signed Date: 02/16/22 00:00 [facility] \TM00\\12PI\\DRAo\\BM09\\PGNo\\MRB2\ \MRLo\ [place] [address] [address] ---------NAME--------- NUMBER SEX AGE ADMIT DISC. XRAY# F/C TYPE MOR HARRIS [id number] F 21 02/15/22 02/16/22 54106 ZBD E/R DATE OF : 2000 M/R# [id number] #: [id number] ED4 \MRHx\ LOCATION: TRANSCRIBED: 02/16/22 4:[address] ABD PEL W [id number] COMPLETED:02/16/22 2:22 TC 07013 {REASON FOR ABDOMEN: post- pelvic pain PHYSICIAN: KEARA Mendoza R A D [place] [address] Patient Name: RICK JUARES [facility] Rec # [id number] [facility] Radiology Report STATUS: Signed [id number] OCT/CT Abdomen Pelvis W Con Procedure: CT Abdomen Pelvis W Con Clinical history: POST PELVIC PAIN Technique: Axial [address] images were obtained of the abdomen and pelvis following the administration of intravenous contrast. Coronal and sagittal reformatted images are also provided. Automated exposure control was utilized. Comparison: 01/01/2020 Findings: There is a calcified granuloma in the left lower lobe. No focal consolidation or effusion. The liver, gallbladder, spleen, pancreas, and adrenal glands are unremarkable. The kidneys are unremarkable. There are mildly prominent small bowel loops in the midabdomen without bowel obstruction. There is no free intraperitoneal air or fluid. The uterus is enlarged with fluid present in the major cavity compatible with the recent state. No free fluid or air identified. The osseous structures are unremarkable. Impression: 1. Enlarged uterus with fluid in the endometrial cavity compatible with recent state. 2. Mildly prominent small bowel loops in the mid abdomen with mild bowel wall thickening could reflect a mild enteritis or underdistention. No bowel obstruction. The preliminary vRad report was reviewed. Signature: DIMAS KNOX MD <Electronically signed by DIMAS KNOX MD in OV> 02/16/221 GREG/PHOEBE DD/ 7 TD/TT: 02/16/22427 Hospital Service: OVM: 74097 OVA: [id number] OVO: [phone] RESEND: cc: JIA SARAH \ITLo\ \UNDo\ \UNDx\ \ITLx\ Reviewed and Electronically Signed by: DIMAS KNOX MD RADIOLOGIST Signed Date: 02/16/22 04:28
--- NOTE | 2024-10-23 16:37 | ED.URI ---
HPI - URI/Sore Throat General Chief Complaint: Upper Respiratory Infection Stated Complaint: chills, malaise, sore throat Time Seen by Provider: 10/23/24 15:58 History of Present Illness HPI Narrative: Pt presents with fever and body aches and a sore throat and an occasional cough for a few days. Child has fever as well. Pt denies abdominal pain. Pt running low grade fever. Related Data Allergies Allergy/AdvReac Type Severity Reaction Status Date / Time No Known Allergies Allergy Verified 10/23/24 13:39 Review of Systems Review of Systems: All systems reviewed & are unremarkable except as noted in HPI and below Exam Const: General: healthy appearing and no acute distress Nutritional Appearance: well nourished Orientation/consciousness: patient oriented x3 Limitations: no limitations HENMT: Head: normal to inspection Mouth: Yes Normal oral and palatal mucosa present Other: erythema to pharynx and tonsils but no exudate Neck: Neck: normal visual inspection, no meningeal signs and lymphadenopathy Resp: Effort & Inspection: normal respiratory effort Auscultation: clear to auscultation bilaterally Cardio: Rate: regular rate Rhythm: regular rhythm GI: GI Palp: Yes Soft to palpation and No Tenderness to palpation present (GI) Auscultation: normal bowel sounds Skin: General skin exam: normal color Rashes: no rashes Wounds: no wounds Neuro: General: patient oriented x3, moves all extremities, no meningeal signs and no focal motor deficits Cranial nerves: Yes Nystagmus not present Speech: normal speech Extrem: General: normal to inspection and no clubbing, cyanosis or edema Psych: Mental Status: mental status grossly normal Affect: normal affect Attitude: cooperative Course Vital Signs Vital signs: Vital Signs Temperature 100 F H 10/23/24 13:38 Pulse Rate 126 H 10/23/24 13:38 Respiratory Rate 16 10/23/24 13:38 Blood Pressure 127/69 10/23/24 13:38 Pulse Oximetry 100 10/23/24 13:38 Temperature 98.7 F 10/23/24 17:45 Pulse Rate 92 10/23/24 17:45 Respiratory Rate 16 10/23/24 17:45 Blood Pressure 119/70 10/23/24 17:45 Pulse Oximetry 100 10/23/24 17:45 Oxygen Delivery Room Air 10/23/24 16:00 MDM - URI/Sore Throat MDM Narrative Medical decision making narrative: pt has fever and st and mild cough. will get labs and covid and cxr and ua and strep screen. Pt strep positive. other work up neg. home on augmentin Lab Data Labs: Lab Results 10/23/24 10/23/24 Range/Units 16:02 16:06 Urine Color Yellow (Yellow) Urine Appearance Clear (Clear) Urine pH 5.5 (5.0-9.0) Ur Specific [place] 1.006 (1.001-1.035) Urine Protein Negative (Negative) mg/dL Urine Glucose (UA) Negative (Negative) mg/dL Urine Ketones Negative (Negative) mg/dL Ur Blood (Man) Negative (Negative) Urine Nitrate Negative (Negative) Urine Bilirubin Negative (Negative) Urine Urobilinogen 0.2 (<2.0) mg/dL Leukocyte Esterase Rfl Negative (Negative) SAMMY/UL POC Urine HCG, Qual Negative (Negative) Influenza A (RT-PCR) Negative (Negative) Influenza B (RT-PCR) Negative (Negative) RSV (RT-PCR) Negative (Negative) SARS-CoV-2 RNA (RT-PCR) Negative (Negative) Group A Strep (PCR) Detected A (Negative) Discharge Plan Discharge Clinical Impression: Strep pharyngitis Patient Disposition: Home Condition: Stable Instructions: Antibiotic Form, Strep Throat (DC) Patient Language: Moldovan Prescriptions: New amoxicillin-pot clavulanate 875-125 mg tablet 1 tablet PO Q12H Qty: 20 0RF Follow-up/Referrals: PHYSICIAN,[employer] [Primary Care Provider] -
[2024-10-23 16:38] LABS: Strep Group A RT-PCR DETECTED (Negative)
[2024-10-23 16:52] LABS: Influenza A QL RT-PCR Negative (Negative); Influenza B QL RT-PCR Negative (Negative); RSV RNA, RT-PCR Negative (Negative); SARS-CoV-2 RNA PCR Negative (Negative)
[2024-10-23] MEDS: ACETAMINOPHEN 500 MG TABLET 1000 MG PO (17:05)
[2024-10-23] MEDS: IBUPROFEN 600 MG TABLET PO (17:06)
[2024-10-23 17:45] VITALS: BP 119/70; PULSE 92; RESP 16; TEMP 37.1; O2SAT 100
== END 2024-10-23 17:48 | disposition home or self-care (01) ==
PROVIDERS: Physician Assistant; Emergency Provider Emergency Medicine
DX: J02.0 Streptococcal pharyngitis (principal); Z20.822 Contact with and (suspected) exposure to COVID-19
CPT/HCPCS: 71045; 81003; 81025; 87637; 87651; 99283; A9270